=== PATIENT | male | born 1970 | race Caucasian/White ===

== ENCOUNTER 2018-03-17 08:43 | Emergency (ER) | payer OTHER ==
[2018-03-17 09:59] LABS: HBSAg Index 0.25 S/CO (0-0.99); HIV (1/2) Antibody/Antigen Non-Reactive (NonReactive); HIV 1/2 INDEX 0.13 S/CO (<1.00); Hep B Surf Ag Non-Reactive S/CO (NonReactive); Hep C IgG Ab Non-Reactive (NonReactive); Hep C Index 0.23 S/CO (0-0.79)
== END 2018-03-17 09:39 | disposition home or self-care (01) ==
LOC: LAB 08:43 → ERS 08:43 → EDSTATUS 08:46 → ERS 09:39
DX: Z77.21 Contact with and (suspected) exposure to potentially hazardous body fluids (principal); G43.909 Migraine, unspecified, not intractable, without status migrainosus; F32.9 Major depressive disorder, single episode, unspecified; Z79.899 Other long term (current) drug therapy
CPT/HCPCS: 36415; 86803; 87340; 87389; 99283